=== PATIENT | female | born 1940 | race Caucasian/White ===

== ENCOUNTER 2020-07-04 10:02 | Outpatient (CLI) | payer MEDICARE, OTHER ==
--- NOTE | 2020-07-04 11:44 | MRI ---
MRI LUMBAR SPINE NONCONTRAST: HISTORY: Compression fracture. Previous back surgery. COMPARISON: 11/05/2015, 05/29/2020. FINDINGS: Stable T1 marrow signal hypointensity with associated T2 and STIR hyperintensity involving the L3 annamarie tebral body. There is stable loss of vertebral body height. Stable mild retropulsion. Stable mild loss of vertebral body height involving inferior endplate of L4 without evidence of edema. Remainder the lumbar vertebra demonstrate appropriate T1 marrow signal intensity. Appropriate signal intensity of the visualized paraspinal muscles and solid organs. Bilateral parapel micheal cysts are redemonstrated. Conus medullaris terminates at the superior aspect of L1. Spondylolisthesis: L1-L2: 2.8 mm of retrolisthesis, previously 3.5 mm of retrolisthesis. T12-L1:Vacuum disc phenomenon with severe loss of disc space height. Right central disc herniation. N o significant central canal stenosis. Patent bilateral neural foramina. L1-L2:Desiccation with moderate loss of disc space height. Broad-based disc bulge, minimal ligament f lavum thickening and facet hypertrophy result in mild central canal stenosis. Moderate bilateral neural foraminal narrowing. L2-L3:Adequate disc hydration. No significant loss of disc space height. Broad-based disc bulge, liga mentum flavum thickening and facet hypertrophy result in mild central canal stenosis. Mild bilateral neural foraminal narrowing. L3-L4:Broad-based disc bulge, ligament flavum thickening and facet hypertrophy. Mild to moderate cent ral canal stenosis. Moderate to severe bilateral neural foraminal narrowing. L4-L5:Adequate disc hydration. Broad-based disc bulge at abuts the thecal sac. There is narrowing of the left subarticular zone with partial obscuration of the traversing left L5 nerve root. Right subareolar zone is patent. There is evidence of previous surgical changes in the posterior elements. Moderate bilateral neural foraminal narrowing. L5-S1:Adequate disc hydration. No posterior disc abnormality. No significant central canal stenosis. Bilateral facet hypertrophy, right greater than left. There is a small amount of fluid in the facet joints. Patent bilateral neural foramina. There are T2 hyperintensities involving multiple foramina at S1 and S2 compatible with perineural sle alexandra cysts. IMPRESSION: 1. Stable abnormal marrow signal intensity involving the L3 vertebral body ingesting edema from an L3 compression fracture. Persistent edema may in part be due to reactive changes. However, continued acute injury/are injury cannot be excluded. No significant change in vertebral body height. Currently , the L3 vertebral body measures 1.5 cm, previously measuring 1.6 cm. 2. Stable remote compression fracture at L4. 3. Stable varying degrees of central canal stenosis and neural foraminal narrowing. Transcribed Date/Time: 07/04/2020 11:59 AM
== END 2020-07-04 10:03 | disposition home or self-care (01) ==
LOC: TBSIIMAG 10:02
PROVIDERS: ATTEND Neurological Surgery
DX: M48.56XA Collapsed vertebra, not elsewhere classified, lumbar region, initial encounter for fracture (principal); M48.061 Spinal stenosis, lumbar region without neurogenic claudication; R93.7 Abnormal findings on diagnostic imaging of other parts of musculoskeletal system
CPT/HCPCS: 72148